=== PATIENT | female | born 1985 | race Caucasian/White ===

== ENCOUNTER 2019-11-30 05:44 | Day surgery (SDC) | payer MEDICAID, SELFPAY ==
[~2019-11-30] VITALS: Ht 162.6 cm; Wt 108.9 kg
[2019-11-30 06:06] LABS: HCG,QUAL RESULT NEGATIVE (NEGATIVE)
[2019-11-30] MEDS ORDERED: HYDROmorphone 1 MG INJ. 1 MG/ML AMPUL IVP PRN ×2 (09:00)
[2019-11-30] MEDS ORDERED: ONDANSETRON HCL 4 MG/2 ML VIAL IVP PRN (09:00)
[2019-11-30] MEDS ORDERED: NALOXONE HCL 0.4 MG/ML AMP (NARCAN) IVP PRN (09:00)
[2019-11-30] MEDS ORDERED: KETOROLAC TROMETHAMINE 30 MG VIAL IVP PRN (09:00)
[2019-11-30] MEDS ORDERED: LR 1,000 ML IV.SOLN IV ONE (09:06)
[2019-11-30] MEDS ORDERED: GLYCOPYRROLATE 0.2 MG/ML VIAL ONE (09:06)
[2019-11-30] MEDS ORDERED: BUPIVACAINE /EPINEPHRINE/PF 0.5% 30 ML VIAL INJ ONE (09:06)
[2019-11-30] MEDS ORDERED: NEOSTIGMINE METHYLSULFATE 1 MG/ML, 10 ML VIAL ONE (09:06)
[2019-11-30] MEDS ORDERED: NS 1000 ML IV.SOLN IV ONE (09:06)
[2019-11-30] MEDS ORDERED: NS IRRIG SOLN 1000 ML IR ONE (09:06)
[2019-11-30] MEDS ORDERED: MIDAZOLAM HCL 5 MG/ML VIAL (VERSED) IV ONE (09:06)
[2019-11-30] MEDS ORDERED: ROCURONIUM BROMIDE 10 MG/ML (ZEMURON) ONE (09:06)
[2019-11-30] MEDS ORDERED: SEVOFLURANE 15 MIN GAS INH ONE (09:06)
[2019-11-30] MEDS ORDERED: KETOROLAC TROMETHAMINE 30 MG VIAL ONE (09:06)
[2019-11-30] MEDS ORDERED: PROPOFOL 200MG/ 20ML VIAL (DIPRIVAN) IV ONE (09:06)
[2019-11-30] MEDS ORDERED: METOCLOPRAMIDE HCL 10 MG/2 ML VIAL ONE (09:06)
[2019-11-30] MEDS ORDERED: ONDANSETRON HCL 4 MG/2 ML VIAL ONE (09:06)
[2019-11-30] MEDS ORDERED: fentaNYL CITRATE/PF 100 MCG/2 ML AMP ONE (09:06)
[2019-11-30] MEDS ORDERED: HYDROmorphone 1 MG INJ. 1 MG/ML AMPUL ONE (09:29)
[2019-11-30 09:55] VITALS: BP_SYST 94
== END 2019-11-30 11:15 | disposition home or self-care (01) ==
LOC: SDS 05:44
PROVIDERS: ATTEND Obstetrics & Gynecology
DX: N83.202 Unspecified ovarian cyst, left side (principal); Z11.59 Encounter for screening for other viral diseases; E66.01 Morbid (severe) obesity due to excess calories; E03.9 Hypothyroidism, unspecified
CPT/HCPCS: 58661; 84703; 88305; J1170; J1885; J2250; J2405; J2704; J2710; J2765; J3010; J3490 ×2; J7030; J7120; U0003; C1727

== ENCOUNTER 2023-10-10 19:42 | Emergency (ER) | payer OTHER, MEDICAID ==
[~2023-10-10] VITALS: Ht 162.6 cm; Wt 117.9 kg
[2023-10-10 19:46] VITALS: BP_SYST 121; PULSE 106; RESP 16; TEMP 99; O2SAT 100
[2023-10-10] MEDS ORDERED: ACET1TAB93 PO (20:44)
[2023-10-10] MEDS ORDERED: ZAN4 PO (20:44)
[2023-10-10 21:08] VITALS: BP_SYST 121; PULSE 98; RESP 16; TEMP 99; O2SAT 100
== END 2023-10-10 21:06 | disposition home or self-care (01) ==
LOC: SED 19:42
DX: S60.222A Contusion of left hand, initial encounter (principal); S70.02XA Contusion of left hip, initial encounter; R51.9 Headache, unspecified; W22.11XA Striking against or struck by driver side automobile airbag, initial encounter; Y93.89 Activity, other specified; Y92.89 Other specified places as the place of occurrence of the external cause; Y99.8 Other external cause status
CPT/HCPCS: 70450-TC; 72125-TC; 99284